=== PATIENT | female | born 1940 | race Two or more races ===

== ENCOUNTER → 2017-06-17 | Outpatient (CLI) | payer OTHER ==
[~2017-06-17] MED LIST: AMLODIPINE BESYL5 MG; LEVOTHYROXINE50 MCG; LOSARTAN POTAS100 MG; METFORMIN HYDRO25 GM; NABUMETONE500 MG PO; PERCOCET 5/3251 TAB PO; RAZADYNE ER16 MG; SERTRALINE HCL25 MG; ZOCOR20 MG
== END | disposition home or self-care (01) ==
LOC: TOM 09:45
DX: R31.1 Benign essential microscopic hematuria (principal)
CPT/HCPCS: 74178; Q9965

== ENCOUNTER → 2017-07-09 | Emergency (ER) | payer OTHER ==
[~2017-07-09] VITALS: Ht 165.1 cm; Wt 62.1 kg
== END | disposition home or self-care (01) ==
LOC: ER 09:41
DX: M94.0 Chondrocostal junction syndrome [Tietze] (principal); R05 Cough

== ENCOUNTER 2017-08-05 09:44 | Outpatient (CLI) | payer OTHER | END 2017-08-05 09:46 | disposition home or self-care (01) | LOC: NUCLEAR 09:44 | DX: M81.0 Age-related osteoporosis without current pathological fracture (principal) ==

== ENCOUNTER 2017-09-08 10:37 | Outpatient (CLI) | payer OTHER | END 2017-09-08 12:04 | disposition home or self-care (01) | LOC: RAD 10:37 | DX: M46.47 Discitis, unspecified, lumbosacral region (principal); M12.9 Arthropathy, unspecified; M19.90 Unspecified osteoarthritis, unspecified site ==

== ENCOUNTER → 2017-09-08 | Outpatient (CLI) | payer OTHER | END | disposition home or self-care (01) | LOC: MAMO-SONO 09:47 | DX: Z12.31 Encounter for screening mammogram for malignant neoplasm of breast (principal); Z87.898 Personal history of other specified conditions; N61.0 Mastitis without abscess ==

== ENCOUNTER 2017-11-18 08:04 | Outpatient (CLI) | payer OTHER | END 2017-11-18 08:07 | disposition home or self-care (01) | LOC: NUCLEAR 08:04 | DX: I20.0 Unstable angina (principal); E11.8 Type 2 diabetes mellitus with unspecified complications; E78.2 Mixed hyperlipidemia; I11.9 Hypertensive heart disease without heart failure; I45.19 Other right bundle-branch block | CPT/HCPCS: 78452; 93017; A9500 ==

== ENCOUNTER 2017-12-14 10:10 | Outpatient (CLI) | payer OTHER | END 2017-12-14 10:11 | disposition home or self-care (01) | LOC: EKG 10:10 | DX: I10 Essential (primary) hypertension (principal) ==

== ENCOUNTER 2018-05-11 10:30 | Outpatient (CLI) | payer OTHER | END 2018-05-11 10:37 | disposition home or self-care (01) | LOC: RX STUDY 10:30 | DX: R13.19 Other dysphagia (principal) ==

== ENCOUNTER 2018-07-18 08:23 | Outpatient (CLI) | payer OTHER | END 2018-07-18 08:31 | disposition home or self-care (01) | LOC: TOM 08:23 | DX: R42 Dizziness and giddiness (principal); G30.1 Alzheimer's disease with late onset; G40.209 Localization-related (focal) (partial) symptomatic epilepsy and epileptic syndromes with complex partial seizures, not intractable, without status epilepticus ==

== ENCOUNTER 2018-08-09 08:32 | Outpatient (CLI) | payer OTHER | END 2018-08-09 08:42 | disposition home or self-care (01) | LOC: TOM 08:32 | DX: R10.30 Lower abdominal pain, unspecified (principal) ==

== ENCOUNTER 2018-10-09 10:59 | Outpatient (CLI) | payer OTHER | END 2018-10-09 11:12 | disposition home or self-care (01) | LOC: SONOGRAMA 10:59 | DX: E04.2 Nontoxic multinodular goiter (principal) ==

== ENCOUNTER → 2018-10-18 | Outpatient (CLI) | payer OTHER | END | disposition home or self-care (01) | LOC: MAMO-SONO 09:50 | DX: Z12.31 Encounter for screening mammogram for malignant neoplasm of breast (principal); Z87.898 Personal history of other specified conditions ==

== ENCOUNTER 2018-12-07 09:42 | Outpatient (CLI) | payer OTHER | END 2018-12-07 14:39 | disposition home or self-care (01) | LOC: SONOGRAMA 09:42 → MAMO-SONO 10:15 → SONOGRAMA 14:39 | DX: R10.2 Pelvic and perineal pain (principal) ==

== ENCOUNTER 2019-01-31 09:01 | Outpatient (CLI) | payer OTHER | END 2019-01-31 09:02 | disposition home or self-care (01) | LOC: TOM 09:01 | DX: R10.33 Periumbilical pain (principal); R10.11 Right upper quadrant pain; R10.12 Left upper quadrant pain | CPT/HCPCS: 74178; Q9965 ==

== ENCOUNTER 2019-07-13 10:41 | Outpatient (CLI) | payer OTHER | END 2019-07-13 15:40 | disposition home or self-care (01) | LOC: MRI 10:41 | DX: R41.3 Other amnesia (principal); I67.89 Other cerebrovascular disease | CPT/HCPCS: 70551 ==

== ENCOUNTER 2019-10-17 07:56 | Outpatient (CLI) | payer OTHER | END 2019-10-17 08:16 | disposition home or self-care (01) | LOC: NUCLEAR 07:56 | DX: E78.2 Mixed hyperlipidemia (principal); I11.0 Hypertensive heart disease with heart failure; E11.9 Type 2 diabetes mellitus without complications; I50.20 Unspecified systolic (congestive) heart failure | CPT/HCPCS: 78452; 93017; A9500; J0153 ==

== ENCOUNTER 2022-03-20 11:04 | Emergency (ER) | payer OTHER ==
[~2022-03-20] VITALS: Ht 165.1 cm; Wt 58.1 kg
== END 2022-03-20 14:41 | disposition home or self-care (01) ==
LOC: ER 11:04
DX: M94.0 Chondrocostal junction syndrome [Tietze] (principal); M19.90 Unspecified osteoarthritis, unspecified site; R05.9 Cough, unspecified; E11.9 Type 2 diabetes mellitus without complications; Z79.84 Long term (current) use of oral hypoglycemic drugs; I10 Essential (primary) hypertension; E05.90 Thyrotoxicosis, unspecified without thyrotoxic crisis or storm

== ENCOUNTER 2023-05-12 14:46 | Emergency (ER) | payer OTHER ==
[~2023-05-12] VITALS: Ht 167.6 cm; Wt 56.7 kg
[2023-05-12] MEDS ORDERED: BACLOFEN5 MG (15:29)
[2023-05-12] MEDS ORDERED: MELOXICAM7.5 MG (15:30)
[2023-05-12 16:22] LABS: HEMATOCRIT 46.4 % (36.0-45.00); HEMOGLOBIN 15.7 g/dL (12.0-15.00); MEAN CORPUSCULAR HGB CONC 33.7 g/dl (32.0-36.0); PLATELET COUNT 135 K/uL (150-450); RED BLOOD COUNT 5.04 M/uL (4.00-6.00); RED CELL DISTRIBUTION WIDTH 14.4 % (11.5-14.5)
[2023-05-12 16:51] LABS: ALBUMIN 3.6 gm/dL (3.4-5.0); BILIRUBIN TOTAL 0.88 mg/dL (0.3-1.2); CALCIUM 9.8 mg/dL (8.5-10.1); CREATININE SERUM 1.13 mg/dL (0.55-1.02); GFR 45.87; GLOBULINA 4.7 G/DL (2.4-3.5); POTASSIUM 3.69 mEq/L (3.5-5.1); TOTAL PROTEIN 8.3 gm/dL (6.4-8.2)
[2023-05-12 17:37] LABS: URINE APPEARANCE Clear; URINE BILIRRUBIN Negative (NEGATIVE); URINE BLOOD Negative; URINE COLOR Yellow; URINE GLUCOSE Negative (NEGATIVE); URINE LEUKOCYTE Trace; URINE NITRATE Negative; URINE PROTEIN Negative (NEGATIVE); URINE UROBILINOGEN 0.2 E.U./dl
[2023-05-12 17:40] LABS: URINE BACTERIA 89.4 uL (0.0-1933); URINE EPITHELIAL CELLS 7.1 uL (0.0-38.8); URINE RBC 2.2 uL (0.0-20.8); URINE WBC 11.7 uL (0.0-23.2)
[2023-05-12] MEDS ORDERED: PEPCID AC20 MG PO (18:03)
== END 2023-05-12 18:16 | disposition home or self-care (01) ==
LOC: ER 14:47
PROVIDERS: General Practice
DX: R11.2 Nausea with vomiting, unspecified (principal); R30.0 Dysuria; E11.9 Type 2 diabetes mellitus without complications; Z79.84 Long term (current) use of oral hypoglycemic drugs; Z20.822 Contact with and (suspected) exposure to COVID-19
CPT/HCPCS: 36415; 96365; 96366; 99284; J7030

== ENCOUNTER 2024-02-27 09:17 | Outpatient (CLI) | payer OTHER ==
[~2024-02-27 09:17] MED LIST changes: +BACLOFEN5 MG; +MELOXICAM7.5 MG; +PEPCID AC20 MG PO
== END 2024-02-27 09:30 | disposition home or self-care (01) ==
LOC: SONOGRAMA 09:17
PROVIDERS: ATTEND Internal Medicine
DX: E03.9 Hypothyroidism, unspecified (principal); M54.2 Cervicalgia; M54.6 Pain in thoracic spine; M54.50 Low back pain, unspecified

== ENCOUNTER 2024-03-02 09:25 | Outpatient (CLI) | payer OTHER | END 2024-03-02 09:40 | disposition home or self-care (01) | LOC: MRI 09:25 | PROVIDERS: ATTEND Internal Medicine | DX: R51.9 Headache, unspecified (principal) | CPT/HCPCS: 70551 ==

== ENCOUNTER 2024-03-22 10:21 | Outpatient (CLI) | payer OTHER | END 2024-03-22 10:33 | disposition home or self-care (01) | LOC: MAMO-SONO 10:21 | PROVIDERS: ATTEND Obstetrics & Gynecology | DX: N60.11 Diffuse cystic mastopathy of right breast (principal); N60.12 Diffuse cystic mastopathy of left breast; Z12.31 Encounter for screening mammogram for malignant neoplasm of breast ==

== ENCOUNTER 2024-11-08 09:59 | Outpatient (CLI) | payer OTHER | END 2024-11-08 10:21 | disposition home or self-care (01) | LOC: MRI 09:59 | PROVIDERS: ATTEND Physical Medicine & Rehabilitation | DX: M54.12 Radiculopathy, cervical region (principal) | CPT/HCPCS: 72141 ==

== ENCOUNTER 2025-01-08 09:30 | Outpatient (CLI) | payer OTHER | END 2025-01-08 09:32 | disposition home or self-care (01) | LOC: NUCLEAR 09:30 | PROVIDERS: ATTEND Internal Medicine | DX: M81.0 Age-related osteoporosis without current pathological fracture (principal) ==

== ENCOUNTER → 2025-01-08 | Outpatient (CLI) | payer OTHER | END | disposition home or self-care (01) | LOC: RX STUDY 07:19 | PROVIDERS: ATTEND Internal Medicine | DX: M54.2 Cervicalgia (principal); R13.10 Dysphagia, unspecified ==